=== PATIENT | female | born 1975 | race American Indian/Alaskan Native ===

== ENCOUNTER 2018-06-05 09:00 | Emergency (ER) | payer MEDICAID ==
--- NOTE | 2018-06-05 10:00 | Cat Scan Report ---
CT HEAD WITHOUT CONTRAST INDICATION: Head injury with loss of consciousness yesterday. Hypertension, headache. COMPARISON: None similar at this institution. FINDINGS: Noncontrast head CT demonstrates normal ventricles and sulci without acute or recent infarct, hemorrhage, mass effect or midline shift. No abnormal extra-axial fluid collections. Posterior fossa structures and basilar cisterns within normal limits. Symmetric imaged eye globes. Clear paranasal sinuses and mastoid air cells. Intact calvarium. Normal overlying scalp soft tissues. Multiple radiopaque dental material incidentally noted. CONCLUSION: No acute intracranial CT abnormality, as described. Thank you for the opportunity to participate in this patient's care.
--- NOTE | 2018-06-05 10:08 | Cat Scan Report ---
CT CERVICAL SPINE WITHOUT CONTRAST INDICATION: Trauma. COMPARISON: None similar. FINDINGS: Noncontrast axial, sagittal and coronal CT reconstructions of the cervical spine demonstrate normal visualized intracranial appearance. Assessment of the spinal canal from C5 inferiorly compromised due to artifact from shoulder soft tissues. Extensive streak artifact from radiopaque dental material as well. Clear included mastoid air cells. Symmetric occipital condyles. Normal anterior and posterior arches of C1. Intact craniocervical articulation with normal predental space, prevertebral soft tissues, vertebral body stature, disc heights and posterior elements. Multilevel degenerative spurring noted, more so mid to lower cervical. Straightening noted, possibly positional versus spasm. A 4 mm left thyroid hypodensity possible, axial image 70, series 2. Clear imaged lung apices. On the obtained axial images: C2-C3 is unremarkable. C3-C4 suggests mild right facet arthropathy. C4-C5 suggests slight left facet arthropathy. C5-C6 and C6-C7 demonstrate prominent anterior degenerative spurring. No significant neural foraminal narrowing. C7-T1 grossly within normal limits. CONCLUSION: Cervical spine straightening and few degenerative changes noted without acute fracture, as above. Please correlate. Thank you for the opportunity to participate in this patient's care.
[2018-06-05] MEDS ORDERED: ZESTRIL PO ONE (10:22)
[2018-06-05] MEDS ORDERED: BABY ASPIRIN PO ONE (10:22)
--- NOTE | 2018-06-05 10:37 | Emergency Department Report ---
ED General Adult HPI - General Chief complaint: Headache Stated complaint: HBP/NUMBNESS (L) SIDE Time Seen by Provider: 06/05/18 10:01 Source: patient Mode of arrival: Ambulatory Limitations: No Limitations - History of Present Illness Initial comments: Mrs. Rush is a very pleasant 42-year-old female with a history of severe hypertension, [id number] diabetes, irritable bowel syndrome, who presents with throbbing headache and severely elevated blood pressure. She has had severe hypertension since 1988 in her early 20s. Multiple family members with history of hypertension. She currently is on four antihypertensive medications. She has been managed by Dr. Salamanca [facility]. She's had elevated blood pressure over the past week. Consequently she is attributing her throbbing headache to severely high blood pressure readings. She's had infrequent headaches over the past several years. However she is concerned that her blood pressure is associated with left arm painful tingling. Left arm tingling painful sensation made it hard to make a fist. This episode occurred yesterday afternoon around 3:00. It was not associated with exertion. Of note patient also had a fall on her job yesterday. She fell without loss of consciousness. She struck her chin. She was referred to urgent care center for workmen comp evaluation. X-ray of her jaw was obtained. She denies visual changes. She denies chest pain. Denies Shortness of breath. She denies paralysis. However she did have painful tingling in her left arm briefly yesterday. Lifestyle changes caused 14 pound weight gain over the past month from 200 poun ds to 214 pounds. She is a single parent. She is also in graduate school studying for her Master's in healthcare administration. 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 She recently moved from [facility] November 2016. She has 2 children ages 15 and 7. Older child has autism. She's had multiple medication change for her diabetes over the past 6 months. Hgb A1C is 6. Current DM medications Glipizide and Strattera.. Medications: Strattera 25 mg Glipizide 4 mg Metoprolol 50 mg Norvasc 10 mg Neurontin 300 mg Chlorthalidone 25 mg Spironolactone 25 mg Zyrtec 10 mg ASA 325 mg Rhodiolo Rosea 120 mg Livbid ER 0.375 mg Singular 10 mg Recently discontinued medications: Invokana, Jentadueto XR -: Gradual Location: head Radiation: non-radiation Severity scale (0 -10): 8 Quality: other (throbbing) Consistency: constant Improves with: none Worsens with: none Associated Symptoms: other (as per HPI) Treatments Prior to Arrival: none - Related Data Allergies Allergy/AdvReac Type Severity Reaction Status Date / Time No Known Allergies Allergy Unverified 06/05/18 09:17 ED Review of Systems ROS: Stated complaint: HBP/NUMBNESS (L) SIDE Other details as noted in HPI Comment: All other systems reviewed and negative Respiratory: denies: cough Cardiovascular: denies: chest pain ED Past Medical Hx - Past Medical History Previous Medical History?: Yes Hx Hypertension: Yes Hx Diabetes: Yes Additional medical history: high chol, IBS - Surgical History Past Surgical History?: Yes Additional Surgical History: Partial hysterectomy 2015 - Family History Family history: cancer (mother from pancreatic cancer 2014 age 75) - Social History Smoking Status: Never Smoker Substance Use Type: None ED Physical Exam - General Limitations: No Limitations General appearance: alert, in no apparent distress - Head Head exam: Present: atraumatic, normocephalic - Eye Eye exam: Present: normal appearance - ENT ENT exam: Present: mucous membranes moist - Neck Neck exam: Present: normal inspection, full ROM. Absent: tenderness, meningismus - Respiratory Respiratory exam: Present: normal lung sounds bilaterally. Absent: respiratory distress, wheezes, rales, rhonchi - Cardiovascular Cardiovascular Exam: Present: regular rate, normal rhythm, normal heart sounds. Absent: systolic murmur, diastolic murmur, rubs, gallop - GI/Abdominal GI/Abdominal exam: Present: soft, normal bowel sounds. Absent: distended, tenderness, guarding, rebound - Extremities Exam Extremities exam: Present: normal inspection - Back Exam Back exam: Present: normal inspection - Neurological Exam Neurological exam: Present: alert, oriented X3 - Psychiatric Psychiatric exam: Present: normal affect, normal mood - Skin Skin exam: Present: warm, dry, intact, normal color. Absent: rash ED Course Vital Signs 06/05/18 06/05/18 06/05/18 09:12 10:01 10:05 Temperature 98.3 F Pulse Rate 80 79 Respiratory 18 19 Rate Blood Pressure 202/103 Blood Pressure 188/101 [Left] O2 Sat by Pulse 99 100 99 Oximetry 06/05/18 06/05/18 06/05/18 10:06 10:46 11:00 Temperature Pulse Rate 79 75 Respiratory 19 23 Rate Blood Pressure 164/87 155/90 Blood Pressure [Left] O2 Sat by Pulse 99 99 Oximetry ED Medical Decision Making - Lab Data Result diagrams: 06/05/18 10:34 06/05/18 10:34 - EKG Data EKG shows normal: sinus rhythm, axis, intervals, QRS complexes, ST-T waves Rate: normal - EKG Data Interpretation: normal EKG 06/05/18 10:37 Time obtained 09 Rate 70 beats a minute normal axis normal intervals no ST-T signs of ischemia - Medical Decision Making Hypertensive Urgency due to many factors include medications and lifestyle changes. I do not detect evidence of end organ damage. Troponin level negative. I do not suspect ACS. Kidney function normal. Normal EKG. Mrs. Rush has [address] Salamanca today. I will not make blood pressure changes. I did recommend considering ACEI in lieu of beta alcira. CBC chemistry troponin all within normal limits. Ms. Rush has recently started a new diet program. She has committed to getting at least 7 hours of sleep. Discharged home in stable condition. Repeat blood pressure 155/90. She received lisinopril here in the ED. I strongly recommended JOEY inhibitor considering history of diabetes. Critical care attestation.: If time is entered above; I have spent that time in minutes in the direct care of this critically ill patient, excluding procedure time. ED Disposition Clinical Impression: Hypertensive urgency, Tension headache, Paresthesias Disposition: -01 TO HOME OR SELFCARE Is pt being admited?: No Does the pt Need Aspirin: No Condition: Stable Instructions: Hypertension (ED)
[2018-06-05 10:44] LABS: Eosinophils # (Auto) 0.1 K/mm3 (0.0-0.4); Eosinophils % (Auto) 2.5 % (0.0-4.3); Hematocrit 37.2 % (30.3-42.9); Hemoglobin 12.3 gm/dl (10.1-14.3); Lymphocytes # (Auto) 0.9 K/mm3 (1.2-5.4); Lymphocytes % (Auto) 19.8 % (13.4-35.0); Mean Corpuscular HGB Conc 33 % (30-34); Mean Corpuscular Volume 96 fl (79-97); Monocytes # (Auto) 0.4 K/mm3 (0.0-0.8); Monocytes % (Auto) 8.3 % (0.0-7.3); Platelet Count 337 K/mm3 (140-440); Red Blood Count 3.89 M/mm3 (3.65-5.03); Red Cell Distribution Width 13.2 % (13.2-15.2)
[2018-06-05] MEDS ORDERED: NORMODYNE PO ONE (11:00)
[2018-06-05 11:07] LABS: BUN/Creatinine Ratio 21; Blood Urea Nitrogen 19 mg/dL (7-17); Calcium 9.3 mg/dL (8.4-10.2); Hemolysis Index 3
[2018-06-07 11:43] VITALS: BP 170/99
== END 2018-06-05 12:06 | disposition home or self-care (01) ==
LOC: ED 09:00
DX: I10 Essential (primary) hypertension (principal); G44.209 Tension-type headache, unspecified, not intractable; R20.0 Anesthesia of skin; E11.9 Type 2 diabetes mellitus without complications
CPT/HCPCS: 36415; 70450; 72125; 80048; 84484; 85025; 93005; 93010

== ENCOUNTER 2019-03-23 06:38 | Emergency (ER) | payer MEDICAID, OTHER ==
[2019-03-23 06:45] VITALS: BP 127/60
--- NOTE | 2019-03-23 07:15 | XRay Report ---
LEFT ELBOW 4 VIEWS. INDICATION / CLINICAL INFORMATION: R elbow pain and swelling COMPARISON: None available. FINDINGS: BONES / JOINT(S): No acute fracture or subluxation. No significant arthritis. SOFT TISSUES: No significant abnormality. ADDITIONAL FINDINGS: None. Signer Name: Anirudh Tyson MD Signed: 03/23/2019 7:10 AM Workstation Name: [id number]
--- NOTE | 2019-03-23 09:07 | Emergency Department Report ---
ED General Adult HPI - General Chief complaint: Extremity Injury, Upper Stated complaint: RT ELBOW PAIN Time Seen by Provider: 03/23/19 07:36 Source: patient Mode of arrival: Ambulatory Limitations: No Limitations - History of Present Illness Initial comments: 43-year-old -Turkish female patient presents with complaints of right elbow and wrist pain for the past 4-6 weeks. Patient states she has a job that requires repetitive movements of her elbow and wrist. She reported she has tried A and elbow compression and wrist splint which do not help with her pain. She also states emcv-[id number] anti-inflammatories are not helping with her pain. She denies any direct injury or trauma or weakness. -: Gradual Severity scale (0 -10): 7 Quality: burning, aching Consistency: constant Improves with: none Worsens with: movement Associated Symptoms: denies other symptoms Treatments Prior to Arrival: NSAID - Related Data Previous Rx's Medication Instructions Recorded Last Taken Type Diclofenac 1% [Diclofenac 1% 20 applic TP QID 30 Days #1 tube 03/23/19 Unknown Rx topical gel] Meloxicam [Mobic] 15 mg PO QDAY PRN #15 tablet 03/23/19 Unknown Rx Allergies Allergy/AdvReac Type Severity Reaction Status Date / Time No Known Allergies Allergy Unverified 06/05/18 09:17 ED Review of Systems ROS: Stated complaint: RT ELBOW PAIN Other details as noted in HPI Comment: All other systems reviewed and negative Musculoskeletal: as per HPI Skin: denies: change in color ED Past Medical Hx - Past Medical History Previous Medical History?: Yes Hx Hypertension: Yes Hx Diabetes: Yes Additional medical history: high chol, IBS - Surgical History Additional Surgical History: Partial hysterectomy 2015 - Social History Smoking Status: Never Smoker Substance Use Type: None - Medications Home Medications: Home Medications Medication Instructions Recorded Confirmed Last Taken Type Diclofenac 1% [Diclofenac 1% 20 applic TP QID 30 Days #1 tube 03/23/19 Unknown Rx topical gel] Meloxicam [Mobic] 15 mg PO QDAY PRN #15 tablet 03/23/19 Unknown Rx ED Physical Exam - General Limitations: No Limitations General appearance: alert, in no apparent distress - Head Head exam: Present: atraumatic, normocephalic - Eye Eye exam: Present: normal appearance. Absent: scleral icterus - Respiratory Respiratory exam: Absent: respiratory distress - Cardiovascular Cardiovascular Exam: Present: regular rate - Expanded Upper Extremity Exam Right Elbow exam: Present: full ROM, tenderness (tenderness noted over the right lateral epicondyle on palpation). Absent: swelling, ecchymosis, deformity, crepidus, erythema, effusion Forearm Wrist exam: Present: normal inspection, other Hand Wrist exam: Present: full ROM, other (positive Phalen's test of right wrist). Absent: tenderness, swelling, ecchymosis, deformity, crepidus, dislocation, erythema Vascular: Present: normal capillary refill - Neurological Exam Neurological exam: Present: alert, oriented X3, normal gait - Psychiatric Psychiatric exam: Present: normal affect, normal mood - Skin Skin exam: Present: warm, dry, intact, normal color. Absent: rash, cyanosis, erythema, ecchymosis ED Course Vital Signs 03/23/19 06:43 Temperature 98.1 F Pulse Rate 84 Respiratory 18 Rate Blood Pressure 127/60 O2 Sat by Pulse 100 Oximetry ED Medical Decision Making - Radiology Data Radiology results: report reviewed LEFT ELBOW 4 VIEWS. INDICATION / CLINICAL INFORMATION: R elbow pain and swelling COMPARISON: None available. FINDINGS: BONES / JOINT(S): No acute fracture or subluxation. No significant arthritis. SOFT TISSUES: No significant abnormality. ADDITIONAL FINDINGS: None. - Medical Decision Making 43-year-old -Turkish female patient presents with complaints of right elbow and wrist pain for the past 4-6 weeks. Suspect lateral epicondylitis and carpal tunnel. Trial of Voltaren gel. Recommend continued use of wrist splint and follow-up with orthopedics for further treatment and evaluation Critical care attestation.: If time is entered above; I have spent that time in minutes in the direct care of this critically ill patient, excluding procedure time. ED Disposition Clinical Impression: Lateral epicondylitis Qualifiers: Laterality: right Qualified Code(s): M77.11 - Lateral epicondylitis, right elbow Carpal tunnel syndrome Qualifiers: Laterality: right Qualified Code(s): G56.01 - Carpal tunnel syndrome, right upper limb Disposition: TO HOME OR SELFCARE Is pt being admited?: No Condition: Stable Instructions: Tennis Elbow (ED), Carpal Tunnel Syndrome (ED) Prescriptions: Diclofenac 1% [Diclofenac 1% topical gel] 20 applic TP QID 30 Days #1 tube Meloxicam [Mobic] 15 mg PO QDAY PRN #15 tablet PRN Reason: Pain, Moderate (4-6) Referrals: PABLO CHAN MD [Staff Physician] - 3-5 Days Forms: Work/School Release Form(ED)
== END 2019-03-23 09:31 | disposition home or self-care (01) ==
LOC: ED 06:38
DX: G56.01 Carpal tunnel syndrome, right upper limb (principal); M77.11 Lateral epicondylitis, right elbow; I10 Essential (primary) hypertension; E11.9 Type 2 diabetes mellitus without complications; E78.00 Pure hypercholesterolemia, unspecified; Z90.711 Acquired absence of uterus with remaining cervical stump; Z79.899 Other long term (current) drug therapy
CPT/HCPCS: 99283